=== PATIENT | female | born 1970 | race Caucasian/White ===

== ENCOUNTER 2020-09-03 09:57 | Outpatient (REF) | payer OTHER, SELFPAY ==
[2020-09-03 10:23] LABS: COVID-19 Test Negative (Negative)
== END 2020-09-03 09:58 | disposition home or self-care (01) ==
LOC: HO.LAB 09:57
PROVIDERS: PCP Internal Medicine; Visit Provider Internal Medicine
DX: Z20.828 Contact with and (suspected) exposure to other viral communicable diseases (principal)
CPT/HCPCS: 87635

== ENCOUNTER 2020-09-21 09:58 | Outpatient (REF) | payer OTHER, SELFPAY ==
--- NOTE | 2020-09-21 10:02 | MM_ITS ---
EXAMINATION: MM SCREENING DIGITAL BREAST TOMOSYNTHESIS, BILATERAL CLINICAL INFORMATION: Screening. Asymptomatic. The lifetime risk of breast cancer based on the Tyrer-Cuzick Model is 10.4%. COMPARISON: Mammography: 02/01/2019, 11/22/2016, 11/05/2015 TECHNIQUE: Digital breast tomosynthesis is performed in both the craniocaudal and mediolateral oblique views along with computer-aided detection (CAD). Synthesized 2D images are generated from the tomosynthesis. FINDINGS: There are scattered areas of fibroglandular density (ACR BI-RADS breast composition Category b). There are no significant masses, abnormal calcifications, or other abnormalities. MM/MM tomosynthesis screening BI IMPRESSION: There are no significant changes from prior study. ASSESSMENT: BI-RADS 1: Negative RECOMMENDATION: Routine annual mammography screening. This patient's information was entered into a reminder system with a target due date for their next mammogram.
== END 2020-09-21 09:59 | disposition home or self-care (01) ==
LOC: HO.MAMMO 09:58
PROVIDERS: PCP Internal Medicine; Visit Provider Advanced Practice Midwife
DX: Z12.31 Encounter for screening mammogram for malignant neoplasm of breast (principal)
CPT/HCPCS: 77063; 77067

== ENCOUNTER → 2020-10-23 13:22 | Outpatient (BNVA) | payer OTHER, SELFPAY | PROVIDERS: PCP Internal Medicine; Referring Provider Internal Medicine; Visit Provider Student in an Organized Health Care Education/Training Program | DX: Z76.89 Persons encountering health services in other specified circumstances (principal) ==

== ENCOUNTER 2020-10-26 07:58 | Outpatient (REF) | payer OTHER, SELFPAY ==
[2020-10-26 08:40] LABS: MANUAL DIFF FLAG NO
[2020-10-26 08:46] LABS: Basophils Percent Auto 0.5 % (0-2); Eosinophils Absolute Auto 0.1 X10*3/uL (0.0-0.4); Eosinophils Percent Auto 0.8 % (0-4); Hematocrit 39.5 % (37-47); Hemoglobin 12.6 g/dl (12.0-16.0); Imm Gran Abs Auto 0.02 X10*3/uL (0.00-0.03); Imm Gran Pct Auto 0.3 % (0.0-0.4); Lymphocytes Absolute Auto 1.5 X10*3/uL (1.2-4.9); Lymphocytes Percent Auto 24.1 % (20-40); Mean Corpuscular HGB Conc 31.9 g/dl (31.0-35.0); Mean Corpuscular Hemoglobin 28.5 pg (27.0-33.0); Mean Corpuscular Volume 89.4 fL (80-98); Monocytes Absolute Auto 0.3 X10*3/uL (0.1-1.2); Monocytes Percent Auto 4.9 % (2-11); Neutrophils Absolute Auto 4.4 X10*3/uL (2.0-8.3); Neutrophils Percent Auto 69.4 % (45-73); Platelet Count 254 X10*3/uL (160-400); Red Blood Count 4.42 X10*6/uL (4.20-5.50); Red Cell Distribution Width 13.4 % (11.0-16.0); White Blood Count 6.3 X10*3/uL (4.8-10.8)
[2020-10-26 09:05] LABS: Alanine Aminotransferase 12 U/L (0-31); Albumin Level 3.8 g/dL (3.5-5.0); Alkaline Phosphatase 62 U/L (39-117); Anion Gap 11 (12-20); Aspartate Amino Transferase 11 U/L (5-31); Bilirubin Direct 0.2 mg/dL (0.0-0.5); Bilirubin Total 0.3 mg/dL (0.0-1.0); Blood Urea Nitrogen 15 mg/dL (9-16); Calcium 8.9 mg/dL (8.4-10.2); Carbon Dioxide 29 mmol/L (22-29); Chloride 104 mmol/L (96-108); Estimated Glomerular Filt Rate > 60; Glucose Fasting 102 mg/dL (60-99); Potassium 4.6 mmol/l (3.3-5.1); Sodium 139 mmol/L (135-145); Total Protein 7.2 g/dL (6.5-8.0)
[2020-10-26 09:27] LABS: TSH reflex Free T4 7.05 mIU/mL (0.32-4.0)
[2020-10-26 10:09] LABS: Free T4 (Free Thyroxine) 0.86 ng/dL (0.71-1.85)
== END 2020-10-26 07:59 | disposition home or self-care (01) ==
LOC: HO.LAB 07:58
PROVIDERS: PCP Internal Medicine; Visit Provider Nurse Practitioner Family
DX: E03.9 Hypothyroidism, unspecified (principal); R17 Unspecified jaundice; R21 Rash and other nonspecific skin eruption
CPT/HCPCS: 36415; 80048; 80076; 84439; 84443; 85025

== ENCOUNTER 2020-10-27 13:44 | Outpatient (REF) | payer OTHER, SELFPAY ==
[2020-10-28 14:18] LABS: BV Int Neg Control Negative (Negative); BV Int Pos Control Positive (Positive)
[2020-10-31 04:58] LABS: CT PCR NOT DETECTED (Not Detect.); NG PCR NOT DETECTED (Not Detect.)
== END 2020-10-27 13:45 | disposition home or self-care (01) ==
LOC: HO.LAB 13:44
PROVIDERS: Visit Provider Obstetrics & Gynecology
DX: Z30.430 Encounter for insertion of intrauterine contraceptive device (principal)
CPT/HCPCS: 87480; 87491; 87510; 87591; 87660; J7298

== ENCOUNTER 2020-11-24 10:59 | Outpatient (REF) | payer OTHER, SELFPAY | END 2020-11-24 11:00 | disposition home or self-care (01) | LOC: HO.LAB 10:59 | PROVIDERS: Visit Provider Obstetrics & Gynecology | DX: R30.0 Dysuria (principal); Z30.431 Encounter for routine checking of intrauterine contraceptive device | CPT/HCPCS: 81003; 87086; 99212 ==

== ENCOUNTER 2020-12-14 12:56 | Outpatient (REF) | payer OTHER, SELFPAY ==
[2020-12-15 08:53] LABS: BV Int Neg Control Negative (Negative); BV Int Pos Control Positive (Positive)
== END 2020-12-14 12:57 | disposition home or self-care (01) ==
LOC: HO.LAB 12:56
PROVIDERS: PCP Internal Medicine; Visit Provider Obstetrics & Gynecology
DX: B37.3 Candidiasis of vulva and vagina (principal); N76.0 Acute vaginitis; B96.89 Other specified bacterial agents as the cause of diseases classified elsewhere
CPT/HCPCS: 87480; 87510; 87660; 99212

== ENCOUNTER 2021-02-24 07:17 | Outpatient (REF) | payer OTHER, SELFPAY ==
[2021-02-24 09:41] LABS: Free T4 (Free Thyroxine) 0.79 ng/dL (0.71-1.85)
== END 2021-02-24 07:18 | disposition home or self-care (01) ==
LOC: HO.LAB 07:17
PROVIDERS: PCP Internal Medicine; Visit Provider Internal Medicine
DX: E03.9 Hypothyroidism, unspecified (principal); E78.5 Hyperlipidemia, unspecified; E66.01 Morbid (severe) obesity due to excess calories
CPT/HCPCS: 36415; 84439; 84443

== ENCOUNTER 2021-03-09 10:24 | Outpatient (REF) | payer OTHER, SELFPAY ==
--- NOTE | ~2021-03-09 | XR_ITS ---
EXAMINATION: XR HAND/WRIST, RIGHT CLINICAL INFORMATION: Right wrist pain. COMPARISON: None. TECHNIQUE: AP, oblique, lateral, and scaphoid views of the right hand and wrist. FINDINGS: No acute fracture or dislocation. Normal carpal alignment. 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 Well-defined, lytic focus within the base of the 4th middle phalanx measuring 0.6 cm, likely representing an enchondroma. No associated calcification or periosteal reaction. No abnormal soft tissue calcification. XR/XR hand wrist RT IMPRESSION: No acute fracture or dislocation. 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
== END 2021-03-09 10:25 | disposition home or self-care (01) ==
LOC: HO.XRAY 10:24
PROVIDERS: PCP Internal Medicine; Visit Provider Internal Medicine
DX: N93.0 Postcoital and contact bleeding (principal); N94.10 Unspecified dyspareunia; M25.531 Pain in right wrist; Z87.891 Personal history of nicotine dependence; Z30.432 Encounter for removal of intrauterine contraceptive device
CPT/HCPCS: 58301; 73110; 73130; 99212

== ENCOUNTER → 2021-03-18 11:48 | Outpatient (BNVA) | payer OTHER, SELFPAY | PROVIDERS: PCP Internal Medicine; Visit Provider Urology | DX: N39.3 Stress incontinence (female) (male) (principal); Z98.890 Other specified postprocedural states | CPT/HCPCS: 99212 ==

== ENCOUNTER 2021-04-02 14:06 | Outpatient (REF) | payer OTHER, SELFPAY ==
--- NOTE | ~2021-04-02 | US_ITS ---
EXAMINATION: US DIAGNOSTIC ULTRASOUND BREAST, LEFT CLINICAL INFORMATION: Left breast swelling/lump. COMPARISON: Mammography of same day and studies dating back to November 05, 2015. TECHNIQUE: Ultrasound of the breast is performed with real-time velez scale imaging and color Doppler. FINDINGS: Targeted left breast ultrasound demonstrated an approximately 1.8 x 1.7 x 1.2 cm lymph node with normal fatty hilum and with some thickening of cortex to approximately 4.5 mm in diameter. The appearance of this lymph node is stable by mammography dating back to November 05, 2015. Results are provided to the patient at time of visit by the technologist. US/US breast LT limited IMPRESSION: There are no significant changes from prior study. ASSESSMENT: BI-RADS 2: Benign RECOMMENDATION: Routine annual mammography screening due in 12 months.
--- NOTE | ~2021-04-02 | MM_ITS ---
EXAMINATION: MM DIAGNOSTIC DIGITAL BREAST TOMOSYNTHESIS, LEFT TARGETED LEFT BREAST ULTRASOUND CLINICAL INFORMATION: Localized swelling, mass and lump, left axilla. The lifetime risk of breast cancer based on the Tyrer-Cuzick Model is 10.9%. COMPARISON: Mammography: 09/21/2020 and studies dating back to 11/05/2015. TECHNIQUE: Digital breast tomosynthesis is performed in both the craniocaudal and mediolateral oblique views along with computer-aided detection (CAD). Synthesized 2D images are generated from the tomosynthesis. Additional exaggerated craniocaudal view performed. Targeted left breast ultrasound. FINDINGS: There are scattered areas of fibroglandular density (ACR BI-RADS breast composition Category b). There are no significant masses, abnormal calcifications, or other abnormalities. In region of palpable abnormality there is noted to be a lymph node which appears similar to previous studies with mildly thickened cortex. Targeted left breast ultrasound demonstrated an approximately 1.8 x 1.7 x 1.2 cm lymph node with normal fatty hilum and with some thickening of cortex to approximately 4.5 mm in diameter. The appearance of this lymph node is stable by mammography dating back to 11/05/2015. Results are provided to the patient at time of visit by the technologist. MM/MM tomosynthesis diagnostic LT IMPRESSION: There are no significant changes from prior study. ASSESSMENT: BI-RADS 2: Benign. RECOMMENDATION: Routine annual mammography screening due in 12 months. This patient's information was entered into a reminder system with a target due date for their next mammogram.
== END 2021-04-02 14:07 | disposition home or self-care (01) ==
LOC: HO.MAMMO 14:06
PROVIDERS: PCP Internal Medicine; Visit Provider Internal Medicine
DX: R22.32 Localized swelling, mass and lump, left upper limb (principal)
CPT/HCPCS: 76642; 77061; 77065

== ENCOUNTER 2021-04-29 07:29 | Outpatient (REF) | payer OTHER, SELFPAY ==
[2021-04-29 08:43] LABS: Alanine Aminotransferase 11 U/L (0-31); Albumin Level 3.7 g/dL (3.5-5.0); Alkaline Phosphatase 70 U/L (39-117); Anion Gap 13 (12-20); Aspartate Amino Transferase 11 U/L (5-31); Bilirubin Total 0.4 mg/dL (0.0-1.0); Blood Urea Nitrogen 24 mg/dL (9-16); Calcium 8.8 mg/dL (8.4-10.2); Carbon Dioxide 25 mmol/L (22-29); Chloride 106 mmol/L (96-108); Cholesterol 114 mg/dL; Estimated Glomerular Filt Rate > 60; Glucose Fasting 112 mg/dL (60-99); HDL Cholesterol 34 mg/dL; LDL Cholesterol Calculated 69 mg/dl; Potassium 4.1 mmol/L (3.3-5.1); Sodium 140 mmol/L (135-145); Total Protein 6.9 g/dL (6.5-8.0); Triglycerides 55 mg/dL
[2021-04-29 09:07] LABS: Thyroid Stimulating Hormone 4.65 uIU/mL (0.32-4.0)
== END 2021-04-29 07:30 | disposition home or self-care (01) ==
LOC: HO.LAB 07:29
PROVIDERS: PCP Internal Medicine; Visit Provider Internal Medicine
DX: E66.01 Morbid (severe) obesity due to excess calories (principal); E78.5 Hyperlipidemia, unspecified; E03.9 Hypothyroidism, unspecified
CPT/HCPCS: 36415; 80053; 80061; 84443

== ENCOUNTER → 2024-07-17 14:16 | Outpatient (RCR) | payer OTHER, SELFPAY ==
[2020-12-07 09:21] VITALS: BP 141/65; PULSE 89; RESP 20; TEMP 36.3; O2SAT 98; BMI 39.2
--- NOTE | 2020-12-07 09:51 | MHC.HEMONC ---
Patient here for follow-up. No labs drawn. In-house customer agent Dominga used. Clinical summary updated with nurse. Provider seen patient.
--- NOTE | 2020-12-07 10:06 | P.PNHO_ITS ---
Medical Summary - Medical Summary Date of Service: 12/07/20 Chief complaint: Follow-up Medical Summary: Iron deficiency anemia diagnosed in 2017. Sent for evaluation of microcytic anemia diagnosed in February 2017. CBC showed a hemoglobin of 9.7, MCV 79.1 with an elevated RDW of 16.2. Normal white count and platelets. No history of iron deficiency in her teenage years. No history of metromenorrhagia or hematochezia/melena. Chronic proton pump inhibitor use for symptoms of GERD. She just started taking iron supplementation. History of chronic venous insufficiency of the lower extremity, rash and chronic ulceration/eczema involving the foot. Has been seen by dermatology as well as specialist. Emergency room evaluation for pain and swelling with a Doppler revealed left groin enlarged lymph node on 04/25/17, size 5.3 cm, lymphoma possible. Hematology evaluation revealed reticulocyte count 1.5, elevated ESR could all, serum protein electrophoresis consistent with an inflammatory pattern, vitamin B12/folate levels, ferritin of 9 and iron saturation of 10%. Allergic reaction to iron dextran, received Ferrlecit, November 2018, tolerated well. Interval History Interval history: Patient is here in follow-up. She is doing very well and has no complaints today. She has the Mirena IUD in her menstrual cycles are not heavy at all. She is concerned about her thyroid problems, she remains hypothyroid and has been gaining weight. She denies any exertional chest pain, shortness of breath or change in bowel habits. She denies any swollen glands in her axilla or groin regions. No fever, chills or unexplained weight loss. Review of Systems - Constitutional Reports as per HPI, Reports no additional constitutional complaints [facility] Medical History: Medical History (Last Reviewed 11/24/20 @ 11:11 by Andressa Lee MD) Depression with anxiety GERD (gastroesophageal reflux disease) High bilirubin Hypothyroid Mild asthma Rash Urge urinary incontinence Urticaria Family History: Family History (Last Reviewed 11/24/20 @ 11:11 by Andressa Lee MD) Father Metastatic cancer Mother Hypertension Chronic mental illness Diabetes Schizophrenia Sister Panic attacks Thyroid condition Drug abuse Brother Hypertension Son Asthma Family/Other Chronic mental illness Drug abuse Surgical History: Surgical History (Last Reviewed 11/24/20 @ 11:11 by Andressa Lee MD) History of bladder surgery History of section History of tubal ligation History of vein stripping Smoking status: Former smoker Oncology Screenings - ECOG Performance Status ECOG Performance Status: 1 Home Medications and Allergies Home Medications Medication Instructions Recorded Confirmed Type albuterol sulfate 2.5 mg INHALATION Q6H PRN 09/24/20 10/26/20 History albuterol sulfate 90 mcg/actuation 1,000,000 mcg PO Q4H 09/24/20 10/26/20 History aerosol inhaler clonazepam 0.5 mg tablet 0.5 mg PO BID PRN 09/24/20 10/26/20 History clonazepam 1 mg tablet 1 mg PO BEDTIME PRN 09/24/20 10/26/20 History hydroxyzine HCl 50 mg tablet mg PO 09/24/20 10/26/20 History montelukast 10 mg tablet 10 mg PO DAILY 09/24/20 10/26/20 History oxybutynin chloride 10 mg 10 mg PO DAILY 09/24/20 10/26/20 History tablet,extended release 24 hr pantoprazole 40 mg tablet,delayed 40 mg PO DAILY 09/24/20 10/26/20 History release sertraline 100 mg tablet 100 mg PO DAILY 09/24/20 10/26/20 History tacrolimus 0.1 % topical ointment TOPICAL BID PRN 09/24/20 10/26/20 History triamcinolone acetonide 0.1 % applic TOPICAL BID 09/24/20 10/26/20 History topical cream gabapentin 400 mg capsule mg PO BEDTIME cap 10/23/20 10/26/20 History Allergies Allergy/AdvReac Type Severity Reaction Status Date / Time adhesive tape [ADHESIVE TAPE] Allergy Intermediate ITCHING Verified 11/24/20 11:03 latex [LATEX] Allergy Intermediate RASH Verified 11/24/20 11:03 vancomycin [VANCOMYCIN] Allergy Intermediate HIVES Verified 11/24/20 11:03 dextran sulfate AdvReac Intermediate N/V Verified 11/24/20 11:03 [DEXTRAN SULFATE] TACHYCARDIA AND HYPERTENION phenazopyridine AdvReac Intermediate NAUSEA & Verified 11/24/20 11:03 [From PYRIDIUM] VOMITING ferrous sulfate AdvReac Unknown constipatio Verified 11/24/20 11:03 n Exam Vital signs: Vital Signs Temp 97.3 F 12/07/20 09:21 Pulse 89 12/07/20 09:21 Resp 20 12/07/20 09:21 BP 141/65 H 12/07/20 09:21 Pulse Ox 98 12/07/20 09:21 Intake & Output 12/06/20 12/07/20 12/07/20 18:59 06:59 18:59 Other: Weight 97.3 kg Weight 97.3 kg Body Mass Index 39.2 - Constitutional Present: no acute distress - Routine HEENT Exam Head: Present: normal inspection Eye: Present: EOMI - Routine Respiratory Exam Present: CTAB - Routine Cardiovascular Exam Cardiovascular: Present: S1, S2 Progress Note: A/P (1) Iron deficiency anemia Status: Acute Assessment and plan: 1. This is a 50 y/o female with iron deficiency anemia related to metromenorrhagia. She stopped taking iron because of constipation. She had an allergic reaction to iron dextran but tolerated Ferrlecit very well. Her blood work in October 2020 showed normal hemoglobin of 12.6 gram/dL. 2. Bilateral inguinal lymphadenopathy noted on ultrasound in October 2019. Ultrasound of bilateral ultrasound in May 2020 showed bilateral oval inguinal nodes with normal cata architecture, no cortical thickening or cystic changes. Largest lymph node on the right is 4.1 x 1.0 cm and on the left 4.6 x 0.8 cm. Follow-up in 1 year. - Time Spent With Patient Total time spent is greater than 50% in coordination of care (as documented) at patient's floor/unit and/or counseling patient: 15 - 24 minutes
--- NOTE | 2021-12-06 13:55 | HE.ONCSEC ---
Called pt. to inquire. pt did not pick-up call. Unable to LVM
--- NOTE | 2021-12-06 16:37 | MHC.HEMONC ---
Phone call to pt regarding missed appointment. Message left
--- NOTE | 2021-12-29 09:51 | HO.HEMONCSCH ---
Patient was sent a N/S letter for missed apt on 12/06/21. The letter was returned to us from the postal service with a sticker saying: Attempted - not known, unable to forward.
== END | disposition home or self-care (01) ==
LOC: HO.ONC 12-07 09:06
PROVIDERS: PCP Internal Medicine; Visit Provider Internal Medicine
DX: D50.0 Iron deficiency anemia secondary to blood loss (chronic) (principal); N92.1 Excessive and frequent menstruation with irregular cycle
CPT/HCPCS: 99214